=== PATIENT | female | born 1980 | race Caucasian/White ===

== ENCOUNTER → 2020-08-15 | Outpatient (CLI) | payer BC ==
[~2020-08-15] MED LIST: FERROUS GLUCONA27 MG; MOTRIN 600600 MG/TAB PO; PERCOCET 325 MG1 TA2 PO; PRENATAL1 TA1
== END ==
LOC: MC.RAD 08-11 13:00
DX: N60.02 Solitary cyst of left breast (principal); N60.01 Solitary cyst of right breast; R92.0 Mammographic microcalcification found on diagnostic imaging of breast

== ENCOUNTER → 2020-08-25 | Outpatient (CLI) | payer BC | LOC: MC.RAD 12:51 | DX: N60.11 Diffuse cystic mastopathy of right breast (principal) ==

== ENCOUNTER → 2021-02-18 | Outpatient (CLI) | payer BC | LOC: MC.RAD 14:00 | DX: N63.0 Unspecified lump in unspecified breast (principal) ==

== ENCOUNTER → 2022-12-30 | Outpatient (CLI) | payer BC | LOC: MC.RAD 06:59 | DX: N63.20 Unspecified lump in the left breast, unspecified quadrant (principal) ==